=== PATIENT | female | born 1935 | race Caucasian/White ===

== ENCOUNTER 2016-06-07 16:02 | Emergency (ER) | payer MEDICARE ==
[2016-06-07 18:24] LABS: BASOPHIL 0.3 % (0-2); EOSINOPHIL 2.2 % (0-7); HGB 11.6 g/dl (12.5-16.0); LYMPHOCYTE 9.2 % (15-48); MCH 30.7 pg (25.0-31.0); MCHC 32.2 g/dL (32.0-36.0); MCV 95.2 fL (78.0-100.0); MONOCYTE 4.9 % (0-12); MPV 10.3 fL (6.0-9.5); NEUTROPHIL 83.4 % (41-80); PLT 205 K/uL (150-400); RBC 3.78 M/uL (4.20-5.40); RDW 13.5 % (11.5-14.0); WBC 9.1 K/uL (4.0-10.5)
[2016-06-07 18:36] LABS: BILIRUBIN - TOTAL 0.2 mg/dL (0.1-1.0); CREATININE 1.2 mg/dL (0.5-1.0); GLOBULIN (CALCULATION) 2.4 g/dL (2.2-4.2); POTASSIUM 3.5 mmol/L (3.5-5.1); TOTAL PROTEIN 6.4 g/dL (6.4-8.3)
== END 2016-06-07 19:14 | disposition home or self-care (01) ==
LOC: FER 16:02
PROVIDERS: Emergency Medicine
DX: R06.02 Shortness of breath (principal); R05 Cough; R09.81 Nasal congestion; R50.9 Fever, unspecified; R19.7 Diarrhea, unspecified
CPT/HCPCS: 36415; 71010; 80053; 85025; 87804; 87899; 99285